=== PATIENT | male | born 1985 | race Asian ===

== ENCOUNTER 2020-07-24 11:20 | Emergency (ER) | payer OTHER ==
[~2020-07-24] VITALS: Ht 182.9 cm; Wt 100.7 kg
[2020-07-24 11:41] VITALS: BP 147/84; TEMP 97.7
== END 2020-07-24 13:26 | disposition home or self-care (01) ==
LOC: ED 11:20
PROC: 2W3DX1Z Immobilization of Left Lower Arm using Splint (ICD-10-PCS; principal; 2020-07-24)
DX: S63.592A Other specified sprain of left wrist, initial encounter (principal)
CPT/HCPCS: 99283